=== PATIENT | female | born 1940 | race Caucasian/White ===

== ENCOUNTER 2019-07-09 15:51 | Emergency (ER) | payer MEDICARE, OTHER ==
[2019-07-09 17:07] LABS: Influenza A Molecular POSITIVE (Negative)
[2019-07-09 17:19] VITALS: BP 150/68
--- NOTE | 2019-07-15 08:26 | UC ---
FLU HPI - HPI Summary HPI Summary: 79-year-old female who has had cold symptoms, body aches fever and chills for the past 2 days. - History of Current Complaint Chief Complaint: UCGeneralIllness Stated Complaint: BILAT EAR PAIN/CONGESTION Time Seen by Provider: 07/09/19 16:36 Hx Obtained From: Patient ?: No Onset/Duration: Gradual Onset Severity Currently: Mild Severity Initially: Moderate Pain Intensity: 4 Pain Scale Used: 0-10 Numeric Associated Signs & Symptoms: Positive: Fever, Myalgia, Sore Throat - Scratchy throat, Nasal Congestion - Allergy/Home Medications Allergies/Adverse Reactions: Allergies Allergy/AdvReac Type Severity Reaction Status Date / Time No Known Allergies Allergy Verified 07/09/19 16:35 Home Medications: Home Medications Acetaminophen [Tylenol Extra Strength] 500 mg PO Q8H PRN 07/09/19 [History Confirmed 07/09/19] Divalproex DR TAB(*) [Depakote DR TAB(*)] 250 mg PO SEE INSTRUCTIONS 07/09/19 [ History Confirmed 07/09/19] Docusate Sodium [Colace] 200 mg PO WEEKLY PRN 07/09/19 [History Confirmed ] Ferrous Sulfate TAB* 325 mg PO DAILY 07/09/19 [History Confirmed 07/09/19] Levothyroxine TAB* [Synthroid TAB*] 50 mcg PO DAILY 07/09/19 [History Confirmed 07/09/19] Lovastatin 40 mg PO DAILY 07/09/19 [History Confirmed 07/09/19] cefUROXime axetil [Cefuroxime] 250 mg PO BID 07/09/19 [History Confirmed ] PMH/Surg Hx/FS Hx/Imm Hx Previously Healthy: Yes Endocrine History: Thyroid Disease Psychological History: Bipolar Disorder - Surgical History Surgical History: Yes Surgery Procedure, Year, and Place: Cystectomy--right scapula. T&A. Polonidal cyst - Family History Known Family History: Positive: Non-Contributory - Social History Occupation: Retired Alcohol Use: Occasionally Substance Use Type: None Smoking Status (MU): Former Smoker When Did the Patient Quit Smoking/Using Tobacco: 1989 Review of Systems All Other Systems Reviewed And Are Negative: Yes Constitutional: Positive: Fever, Chills ENT: Positive: Sore Throat - Patient states she's had a scratchy throat, Nasal Discharge Respiratory: Positive: Cough - Dry nonproductive cough. Musculoskeletal: Positive: Myalgia Is Patient Immunocompromised?: No Physical Exam Triage Information Reviewed: Yes Appearance: Well-Appearing, No Pain Distress, Well-Nourished Vital Signs: Initial Vital Signs Temp 100.9 F 07/09/19 16:42 Pulse 90 07/09/19 16:42 Resp 18 07/09/19 16:42 BP 124/105 07/09/19 16:42 Pulse Ox 97 07/09/19 16:42 Vital Signs Reviewed: Yes Eyes: Positive: Conjunctiva Clear ENT: Positive: Pharynx normal, Nasal drainage, TMs normal, Uvula midline Neck: Positive: Supple, Nontender, No Lymphadenopathy Respiratory: Positive: Lungs clear, Normal breath sounds, No respiratory distress, No accessory muscle use Cardiovascular: Positive: RRR, No Murmur, Pulses Normal, Brisk Capillary Refill Musculoskeletal Exam: Normal Neurological Exam: Normal Psychological Exam: Normal Skin Exam: Normal Flu Course/Dx - Course Course Of Treatment: The patient is comfortable here. Rapid influenza test was positive for influenza a. We did discuss use of Tamiflu and she would like to have that prescription. She is to follow-up with her primary care provider if no improvement in 2 or 3 days and go to the ER for any worsening symptoms. Patient appeared nontoxic. - Differential Dx/Diagnosis Provider Diagnosis: Influenza A Discharge ED - Sign-Out/Discharge Documenting (check all that apply): Patient Departure All imaging exams completed and their final reports reviewed: No Studies - Discharge Plan Condition: Fair Disposition: HOME Prescriptions: Oseltamivir CAP* [Tamiflu CAP*] 75 mg PO BID 5 Days #10 cap Patient Education Materials: Influenza (DC) Referrals: Aileen Dooley MD [Primary Care Provider] - Additional Instructions: Increase fluids, rest, take Tylenol every 4 hours for fever. Definite follow- up with your primary care provider in 2 or 3 days if no improvement. Go to the emergency room if you have any worsening symptoms. - Billing Disposition and Condition Condition: FAIR Disposition: Home
== END 2019-07-09 17:23 | disposition home or self-care (01) ==
LOC: UCCORT 15:51
DX: J10.1 Influenza due to other identified influenza virus with other respiratory manifestations (principal); E07.9 Disorder of thyroid, unspecified; F31.9 Bipolar disorder, unspecified; Z87.891 Personal history of nicotine dependence
CPT/HCPCS: 99202; G0463